=== PATIENT | male | born 2000 | race Caucasian/White ===

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

== ENCOUNTER 2021-01-18 20:40 | Emergency (ER) | payer MEDICAID, OTHER ==
[2021-01-18] MEDS ORDERED: Bacitracin Oint 1 GM U/D Packet TOP ONE (20:45)
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
== END 2021-01-18 21:47 | disposition home or self-care (01) ==
LOC: LB.ED 20:40
DX: S61.210A Laceration without foreign body of right index finger without damage to nail, initial encounter (principal); V49.9XXA Car occupant (driver) (passenger) injured in unspecified traffic accident, initial encounter
CPT/HCPCS: 12001; 99284; A0425; A0429; 99282

== ENCOUNTER 2022-12-26 17:09 | Emergency (ER) | payer MEDICAID ==
[2022-12-26] MEDS ORDERED: Diphtheria,Pertussis(Acell),Tetanus Vaccine 0.5 ML Syringe IM ONE (17:32)
[2022-12-26] MEDS: Lidocaine 1% 5 ML VIAL INJECT ONE ×2 (17:50→18:23)
[2022-12-26] MEDS ORDERED: cefTRIAXone 1 GM Vial ONE (18:03)
[2022-12-26] MEDS ORDERED: cefTRIAXone 1 GM Vial IM ONE (18:10)
== END 2022-12-26 19:15 ==
LOC: LB.ED 17:09
DX: S31.119A Laceration without foreign body of abdominal wall, unspecified quadrant without penetration into peritoneal cavity, initial encounter (principal); Z23 Encounter for immunization; W17.4XXA Fall from dock, initial encounter
CPT/HCPCS: 90471; 90715; 96372; 99284; 99284-25; J0696

== ENCOUNTER 2023-03-28 16:03 | Emergency (ER) | payer MEDICAID ==
[2023-03-28] MEDS ORDERED: Sodium Chloride 0.9% 10 ML Syringe FLUSH PRN (16:55)
[2023-03-28] MEDS: diphenhydrAMINE 50 MG/ML SDV ONE (17:00)
[2023-03-28] MEDS: Prochlorperazine 10 MG/2 ML SDV ONE (17:00)
[2023-03-28] MEDS: Prochlorperazine 10 MG in Sodium Chloride 0.9% 50 ML IV ONE (17:01)
[2023-03-28] MEDS: diphenhydrAMINE 50 MG/ML SDV IVPUSH ONE (17:07)
[2023-03-28] MEDS: Ketorolac 30 MG/ML SDV IVPUSH ONE (17:10)
[2023-03-28] MEDS: Ketorolac 30 MG/ML SDV ONE (17:10)
[2023-03-28] MEDS: Prochlorperazine 10 MG/2 ML SDV IVPUSH ONE (17:12)
[2023-03-28] MEDS: Ketorolac 60 MG/2 ML SDV IVPUSH ONE (17:17)
== END 2023-03-28 18:05 | disposition home or self-care (01) ==
LOC: LB.ED 16:03
DX: G44.209 Tension-type headache, unspecified, not intractable (principal); Z87.891 Personal history of nicotine dependence
CPT/HCPCS: 96374; 96375; 99283; J0780; J1200; J1885

== ENCOUNTER 2023-05-25 15:39 | Emergency (ER) | payer OTHER, MEDICAID ==
[2023-05-25] MEDS ORDERED: Acetaminophen 500 MG Tab PO ONE (16:10)
[2023-05-25] MEDS ORDERED: Acetaminophen 500 MG Tab ONE (16:15)
== END 2023-05-25 17:15 | disposition home or self-care (01) ==
LOC: LB.ED 15:39
DX: S49.90XA Unspecified injury of shoulder and upper arm, unspecified arm, initial encounter (principal); S49.91XA Unspecified injury of right shoulder and upper arm, initial encounter; V89.2XXA Person injured in unspecified motor-vehicle accident, traffic, initial encounter
CPT/HCPCS: 72125; 73030-RT; 99284; A9270-GY

== ENCOUNTER 2023-06-24 17:15 | Emergency (ER) | payer MEDICAID ==
[2023-06-24] MEDS: Sodium Chloride 0.9% 1,000 ML IV ONE ×2 (17:50→19:00)
[2023-06-24 17:52] LABS: BASOPHILS ABSOLUTE AUTO 0.01 K/uL (0.02-0.10); BASOPHILS PERCENT AUTO 0.1 % (0.0-0.5); HEMATOCRIT 41.4 % (40.0-54.0); HEMOGLOBIN 15.5 g/dL (13.0-18.0); LYMPHOCYTES ABSOLUTE AUTO 1.07 K/uL (1.50-4.00); LYMPHOCYTES PERCENT AUTO 8.6 % (20.0-40.0); MEAN CORPUSCULAR HEMOGLOBIN 31.6 pg (27.0-32.0); MEAN CORPUSCULAR HGB CONC 37.4 g/dL (31.0-35.0); MEAN CORPUSCULAR VOLUME 85 fL (76-96); MEAN PLATELET VOLUME 9.5 fL (6.0-10.0); MONOCYTES ABSOLUTE AUTO 0.43 K/uL (0.20-0.80); MONOCYTES PERCENT AUTO 3.5 % (3.0-10.0); NEUTROPHILS ABSOLUTE AUTO 10.92 K/uL (2.00-7.50); NEUTROPHILS PERCENT AUTO 87.8 % (45.0-70.0); PLATELET COUNT,PLT 199 K/uL (150-400); WHITE BLOOD CELL COUNT,WBC 12.4 K/uL (4.0-11.0)
[2023-06-24] MEDS: Ondansetron 4 MG/2 ML SDV IVPUSH ONE (17:52)
[2023-06-24 18:12] LABS: A/G RATIO 1.5 (0.8-2.0); ALBUMIN 4.7 g/dL (3.4-5.0); ANION GAP 22.4 mmol/L (5.0-15.0); BILIRUBIN TOTAL 0.7 mg/dL (0.0-1.0); BUN/CREATININE RATIO 13.7 (6-25); CALCIUM 9.4 mg/dL (8.5-10.1); CARBON DIOXIDE,CO2 19.3 mmol/L (21.0-32.0); CREATININE 1.17 mg/dL (0.70-1.30); EST CRCL DRUG DOSING (CG) 112.87 mL/min; POTASSIUM,K 3.7 mmol/L (3.5-5.1); PROTEIN TOTAL,TP 7.8 g/dL (6.4-8.2)
[2023-06-24 19:44] LABS: APPEARANCE,URINE SLIGHTLY CLOUDY (CLEAR); BILIRUBIN,URINE NEGATIVE (NEGATIVE); COLOR,URINE YELLOW; GLUCOSE,URINE NEGATIVE (NEGATIVE); KETONES,URINE 40 mg/dL (NEGATIVE); LEUKOCYTE ESTERASE,URINE NEGATIVE (NEGATIVE); NITRITE,URINE NEGATIVE (NEGATIVE); OCCULT BLOOD,URINE NEGATIVE (NEGATIVE); PROTEIN,URINE TRACE mg/dL (NEGATIVE); UROBILINOGEN,URINE 0.2 E.U./dL (0.2-1.0)
[2023-06-24 19:48] LABS: RBC,URINE 0-5 /HPF; SQUAMOUS EPITHELIAL CELLS,UR OCCASIONAL /HPF; WBC,URINE 0-5 /HPF
[2023-06-24 19:49] LABS: MUCUS,URINE FEW /HPF
[2023-06-24 19:51] LABS: AMPHETAMINES SCREEN, URINE NEGATIVE (NEGATIVE); BARBITURATE SCREEN,URINE NEGATIVE (NEGATIVE); BENZODIAZEPINES SCREEN,URINE NEGATIVE (NEGATIVE); METHADONE SCREEN, URINE NEGATIVE (NEGATIVE); METHAMPHETAMINES SCREEN, URINE NEGATIVE (NEGATIVE); OXYCODONE SCREEN,URINE NEGATIVE (NEGATIVE)
[2023-06-24 19:52] LABS: THC SCREEN,URINE 50 NG/ML POSITIVE (NEGATIVE)
== END 2023-06-24 20:30 | disposition home or self-care (01) ==
LOC: LB.ED 17:15
DX: K29.00 Acute gastritis without bleeding (principal); Z79.899 Other long term (current) drug therapy
CPT/HCPCS: 36415; 74176; 80053; 80307; 81001; 82947; 83690; 84484; 85025; 93005; 96361; 96374; 99284-25; J2405; J7030